=== PATIENT | female | born 1935 | race Caucasian/White ===

== ENCOUNTER 2021-03-08 11:18 | Emergency (ER) | payer SELFPAY ==
[~2021-03-08] VITALS: Ht 165.1 cm; Wt 59.1 kg
[2021-03-08 11:49] VITALS: BP 118/74
== END 2021-03-08 14:52 | disposition left against medical advice (07) ==
LOC: ER 11:18
DX: Z13.89 Encounter for screening for other disorder (principal); R05.9 Cough, unspecified; J02.9 Acute pharyngitis, unspecified; R09.89 Other specified symptoms and signs involving the circulatory and respiratory systems; F17.200 Nicotine dependence, unspecified, uncomplicated; Z85.3 Personal history of malignant neoplasm of breast; Z98.890 Other specified postprocedural states
CPT/HCPCS: 71045; 99283

== ENCOUNTER 2021-03-17 13:02 | Inpatient (IN) | payer BC, MEDICARE ==
[~2021-03-17] VITALS: Ht 165.1 cm; Wt 71.0 kg
[2021-03-17 14:16] LABS: BASOPHILS % (AUTO) 0.8 % (0-1); EOSINOPHILS # (AUTO) 0.1 X10'3 (0-0.9); EOSINOPHILS % (AUTO) 1.3 % (0-6); HEMATOCRIT 40.4 % (35.0-45.0); HEMOGLOBIN 13.9 g/dl (12.0-16.0); LYMPHOCYTES # (AUTO) 0.8 X10'3 (1.1-4.8); LYMPHOCYTES % (AUTO) 17.5 % (21-51); MEAN CORPUSCULAR HEMOGLOBIN 33.4 PG (27.0-31.0); MEAN CORPUSCULAR HGB CONC 34.4 g/dL (33.0-36.5); MEAN CORPUSCULAR VOLUME 97.1 FL (78-98); MEAN PLATELET VOLUME 9.2 FL (7.4-10.4); MONOCYTES # (AUTO) 0.5 X10'3 (0-0.9); MONOCYTES % (AUTO) 10.3 % (2-12); NEUTROPHILS # (AUTO) 3.3 X10'3 (1.8-7.7); NEUTROPHILS % (AUTO) 70.1 % (42-75); PLATELET COUNT 259 X10'3 (140-440); RED BLOOD COUNT 4.15 X10'6 (4.20-5.60); RED CELL DISTRIBUTION WIDTH 12.6 % (11.5-14.5); WHITE BLOOD COUNT 4.7 X10'3 (4.5-11.0)
[2021-03-17 14:22] LABS: ALANINE AMINOTRANSFERASE 10 U/L (12-78); ALBUMIN 2.8 G/DL (3.4-5.0); ALBUMIN/GLOBULIN RATIO 0.9 (1.1-1.5); ALKALINE PHOSPHATASE 56 IU/L (46-116); ANION GAP 7 (8-16); ASPARTATE AMINO TRANSFERASE 22 U/L (10-37); BILIRUBIN,TOTAL 0.6 MG/DL (0.1-1.0); BLOOD UREA NITROGEN 15 MG/DL (7-18); BUN/CREATININE RATIO 20.5 (6.6-38.0); CHLORIDE 109 MMOL/L (99-107); CREATININE 0.73 MG/DL (0.40-0.90); GLUCOSE 86 MG/DL (70-104); LIPASE 156 U/L (73-393); POTASSIUM 3.4 MMOL/L (3.5-5.1); SODIUM 140 MMOL/L (135-145); TOTAL CARBON DIOXIDE 24.1 MMOL/L (24-32); eGFR 76 ML/MIN
--- NOTE | 2021-03-17 17:24 | NUR ---
attepted to discharge pt with son who is primary caregiver and who was in room with pt. son refused to take pt home, stating that he wants a patient reevaluation, to speak to a psych social worker, and wants patient rehabilitated and placed in termite renewal inspector care as he cant take care of her anymore. informed pt and son that termite renewal inspector placement must be done by the patients primary doctor, and that social workers are no longer here for the day. the son stated he wanted to talk to our supervisors, to call in the social workers, and that he will continue to refuse to take her home. [place] attorney [place] present during conversation.
[2021-03-17] MEDS ORDERED: ondansetron/PF 4mg/2ml inj IV PRN (18:05)
[2021-03-17] MEDS ORDERED: potassium CL 10mEq/100ml bag 100 ML IV PRN (18:05)
[2021-03-17] MEDS ORDERED: morphine 2 MG/ML inj. syringe IV PRN (18:05)
[2021-03-17] MEDS ORDERED: magnesium 4gm in 100ml NS 100 ML IV PRN (18:05)
[2021-03-17] MEDS ORDERED: potassium Cl 20 mEq SR tablet PO PRN ×2 (18:05)
[2021-03-17] MEDS ORDERED: HYDROcodone/acetaminophen 5mg/325mg tablet PO PRN (18:05)
[2021-03-17] MEDS ORDERED: magnesium Cl slow-release 64mg tablet PO PRN (18:05)
[2021-03-17] MEDS ORDERED: acetaminophen 325mg tablet PO PRN ×2 (18:05)
[2021-03-17] MEDS ORDERED: magnesium 2GM in 50ml NS 50 ML IV PRN (18:05)
[2021-03-17] MEDS ORDERED: iohexol 350MG/ML 100ml bottle IV ONE (18:45)
--- NOTE | 2021-03-17 18:57 | NUR ---
Patient resting comfortably on gurney, has no complaints. I will continue to monitor.
--- NOTE | 2021-03-17 19:09 | NUR ---
Son at bedside still being difficult, wanting to talk about why we didn't do this or that. Im not going to speak for our doctors and told him that. He is insisting we feed her, says she hasn't eaten in 5 days, I advised him when the admitting doctor gives me orders for a diet we can arrange food. He doesn't understand why we won't feed her enterally, I said it was not indicated. Patient left for CT.
[2021-03-17] MEDS ORDERED: ISOS30TA84 PO (19:17)
[2021-03-17] MEDS ORDERED: EVOL140P3 SUBCUT (19:17)
[2021-03-17] MEDS ORDERED: NITR0.4T51 SL (19:17)
[2021-03-17] MEDS ORDERED: DONE10TA44 PO (19:17)
[2021-03-17] MEDS ORDERED: OMEP-50 PO (19:17)
[2021-03-17 19:44] LABS: CLARITY,URINE SLIGHTLY CLOUDY (Clear); COLOR,URINE YELLOW (Yellow); GLUCOSE, URINE NEGATIVE (Neg); KETONES,URINE 15 mg/dl (Neg); LEUKOCYTE ESTERASE ,URINE SMALL (Neg); NITRITES, URINE NEGATIVE (Neg); OCCULT BLOOD,URINE NEGATIVE (Neg); PROTEIN,URINE NEGATIVE (Neg); UROBILINOGEN,URINE 0.2 E.U/dL (0.2-1.0)
[2021-03-17] MEDS: normal saline 1000ml 1,000 ML IV SCH (19:46)
[2021-03-17 19:47] LABS: UA COLLECTION TYPE NON-SPECIFIED
--- NOTE | 2021-03-17 19:47 | NUR ---
Had patient up to bedside commode with 1 person assist and then changed her into a gown.
[2021-03-17] MEDS: K and/or MAG REPLACEMENT MC SCH (20:00)
[2021-03-17] MEDS ORDERED: dexamethasone 4mg/ml inj IV SCH (20:00)
[2021-03-17 20:08] LABS: BACTERIA,URINE 1+ /HPF (Neg); MUCUS STRANDS FEW /LPF (Neg); RBC,URINE 0-2 /HPF (0-2); SQUAMOUS EPITHELIAL CELL,UR FEW /LPF (FEW); TRANSITIONAL EPI CELLS,URINE FEW /HPF; WBC,URINE 20-30 /HPF (0-4)
[2021-03-17] MEDS: heparin, porcine 5000 units/ml vial SQ SCH (20:53)
[2021-03-17] MEDS ORDERED: temazepam 15mg capsule PO PRN (21:00)
[2021-03-17] MEDS: dexamethasone 6 MG in D5W 100ml IV soln IV SCH (21:27)
[2021-03-18 05:30] VITALS: BP 119/56
--- NOTE | 2021-03-18 06:10 | NUR ---
RECEIVED REPORT FROM RICK, RN
[2021-03-18 07:18] LABS: BASOPHILS % (AUTO) 0.3 % (0-1); EOSINOPHILS % (AUTO) 0 % (0-6); HEMATOCRIT 40.9 % (35.0-45.0); LYMPHOCYTES # (AUTO) 0.4 X10'3 (1.1-4.8); LYMPHOCYTES % (AUTO) 9.7 % (21-51); MEAN CORPUSCULAR HEMOGLOBIN 32.4 PG (27.0-31.0); MEAN CORPUSCULAR HGB CONC 34.3 g/dL (33.0-36.5); MEAN CORPUSCULAR VOLUME 94.5 FL (78-98); MEAN PLATELET VOLUME 9.4 FL (7.4-10.4); MONOCYTES # (AUTO) 0.1 X10'3 (0-0.9); MONOCYTES % (AUTO) 2.2 % (2-12); NEUTROPHILS # (AUTO) 3.4 X10'3 (1.8-7.7); NEUTROPHILS % (AUTO) 87.8 % (42-75); PLATELET COUNT 307 X10'3 (140-440); RED BLOOD COUNT 4.33 X10'6 (4.20-5.60); RED CELL DISTRIBUTION WIDTH 12.6 % (11.5-14.5); WHITE BLOOD COUNT 3.9 X10'3 (4.5-11.0)
[2021-03-18] MEDS: pantoprazole 40mg Tablet.DR PO SCH (07:30)
[2021-03-18 07:57] LABS: ALANINE AMINOTRANSFERASE 11 U/L (12-78); ALBUMIN 2.8 G/DL (3.4-5.0); ALBUMIN/GLOBULIN RATIO 0.9 (1.1-1.5); ALKALINE PHOSPHATASE 58 IU/L (46-116); ANION GAP 10 (8-16); ASPARTATE AMINO TRANSFERASE 18 U/L (10-37); BILIRUBIN,TOTAL 0.5 MG/DL (0.1-1.0); BLOOD UREA NITROGEN 11 MG/DL (7-18); CALCIUM 8.1 MG/DL (8.5-10.1); CHLORIDE 111 MMOL/L (99-107); CREATININE 0.55 MG/DL (0.40-0.90); GLUCOSE 121 MG/DL (70-104); POTASSIUM 3.8 MMOL/L (3.5-5.1); SODIUM 144 MMOL/L (135-145); TOTAL CARBON DIOXIDE 22.8 MMOL/L (24-32); eGFR > 90 ML/MIN
[2021-03-18] MEDS: K and/or MAG REPLACEMENT MC SCH ×2 (08:00→20:00)
[2021-03-18] MEDS: donepezil 5mg tablet PO SCH (08:00)
[2021-03-18] MEDS: CefTRIAXone 2gm/D5W 50ml BAG 50 ML IV SCH (08:55)
[2021-03-18] MEDS: heparin, porcine 5000 units/ml vial SQ SCH ×2 (08:59→20:30)
[2021-03-18] MEDS: isosorbide mononitrate 30mg tab.SR.24H PO SCH (09:02)
--- NOTE | 2021-03-18 09:11 | NUR ---
scanner not scanning meds into [employer], checked all meds prior to admin, continue to monitor pt
[2021-03-18] MEDS: dexamethasone 6 MG in D5W 100ml IV soln IV SCH ×2 (09:40→20:30)
[2021-03-18 10:00] VITALS: BP 118/80
--- NOTE | 2021-03-18 15:33 | NUR ---
Malnutrition Consult: Pt admit DX COVID-19 asymptomatic and generalized weakness w/ hx dementia per EMR. Pt unsure of wt loss hx though reports decrease appetite [employer] per RN Malnutrition Screen. Pt has mild weakness, no edema, skin intact, no scaled wt this admit or prior scaled wt hx, and currently on room air per EMR. Pt refused first regular diet meal this AM w/ 25% lunch today and is independent w/ feeding per EMR. Pt lacks minimum malnutrition criteria at this time; will monitor for further malnutrition criteria and nutrition intervention needs this admit. Addendum: 03/18/21 at [address] Amended: Links added.
[2021-03-18] MEDS: normal saline 1000ml 1,000 ML IV SCH (17:21)
[2021-03-18 18:00] VITALS: BP 138/108
--- NOTE | 2021-03-18 18:46 | NUR ---
gave report to becca davila
[2021-03-18 22:00] VITALS: BP 98/47
[2021-03-19 02:00] VITALS: BP 104/47
[2021-03-19 06:00] VITALS: BP 103/45
--- NOTE | 2021-03-19 07:10 | NUR ---
Problems reprioritized. Patient report given, questions answered & plan of care reviewed with Savannah FUENTES.
[2021-03-19 07:35] LABS: BASOPHILS % (AUTO) 0.5 % (0-1); EOSINOPHILS % (AUTO) 0.3 % (0-6); HEMATOCRIT 38.5 % (35.0-45.0); HEMOGLOBIN 13.3 g/dl (12.0-16.0); LYMPHOCYTES # (AUTO) 0.6 X10'3 (1.1-4.8); LYMPHOCYTES % (AUTO) 9.5 % (21-51); MEAN CORPUSCULAR HGB CONC 34.6 g/dL (33.0-36.5); MEAN CORPUSCULAR VOLUME 95.2 FL (78-98); MEAN PLATELET VOLUME 9.4 FL (7.4-10.4); MONOCYTES # (AUTO) 0.3 X10'3 (0-0.9); MONOCYTES % (AUTO) 4.5 % (2-12); NEUTROPHILS # (AUTO) 5.2 X10'3 (1.8-7.7); NEUTROPHILS % (AUTO) 85.2 % (42-75); PLATELET COUNT 327 X10'3 (140-440); RED BLOOD COUNT 4.04 X10'6 (4.20-5.60); RED CELL DISTRIBUTION WIDTH 12.7 % (11.5-14.5); WHITE BLOOD COUNT 6.1 X10'3 (4.5-11.0)
[2021-03-19] MEDS: K and/or MAG REPLACEMENT MC SCH ×2 (08:00→19:27)
[2021-03-19 08:28] LABS: ALANINE AMINOTRANSFERASE 10 U/L (12-78); ALBUMIN 2.7 G/DL (3.4-5.0); ALKALINE PHOSPHATASE 54 IU/L (46-116); ANION GAP 11 (8-16); ASPARTATE AMINO TRANSFERASE 15 U/L (10-37); BILIRUBIN,TOTAL 0.4 MG/DL (0.1-1.0); BLOOD UREA NITROGEN 14 MG/DL (7-18); BUN/CREATININE RATIO 26.9 (6.6-38.0); CALCIUM 7.9 MG/DL (8.5-10.1); CHLORIDE 112 MMOL/L (99-107); CREATININE 0.52 MG/DL (0.40-0.90); GLUCOSE 129 MG/DL (70-104); POTASSIUM 3.8 MMOL/L (3.5-5.1); SODIUM 144 MMOL/L (135-145); TOTAL CARBON DIOXIDE 21.5 MMOL/L (24-32); TOTAL PROTEIN 5.3 G/DL (6.4-8.2); eGFR > 90 ML/MIN
[2021-03-19] MEDS: heparin, porcine 5000 units/ml vial SQ SCH ×2 (09:12→19:33)
[2021-03-19] MEDS: dexamethasone 6 MG in D5W 100ml IV soln IV SCH ×2 (09:12→19:33)
[2021-03-19] MEDS: CefTRIAXone 2gm/D5W 50ml BAG 50 ML IV SCH (09:12)
[2021-03-19] MEDS: isosorbide mononitrate 30mg tab.SR.24H PO SCH (09:12)
[2021-03-19] MEDS: pantoprazole 40mg Tablet.DR PO SCH (09:12)
[2021-03-19] MEDS: donepezil 5mg tablet PO SCH (09:12)
[2021-03-19 10:00] VITALS: BP 112/46
[2021-03-19] MEDS: normal saline 1000ml 1,000 ML IV SCH (10:05)
[2021-03-19] MEDS ORDERED: DEC4T PO (13:55)
--- NOTE | 2021-03-19 16:31 | NUR ---
Page Sent PAGER ID: [phone] MESSAGE: DANIELLE [id number]-RE: MARICHUY MEDEIROS [id number]...PTS SON CALLED BACK, MISSED YOUR CALL, NOW HAS PHONE IN HAND, PLEASE CALL BACK [phone]
[2021-03-19 18:00] VITALS: BP 110/50
--- NOTE | 2021-03-19 18:32 | NUR ---
POC discussed with transmitter engineer in charge- Son Pepe uncomfortable taking patient home at this time without speaking to MD first. MD notified. Plan with transmitter engineer in charge for patient to stay overnight and to be discharged next am after son is able to to have questions answered from MD and feels that discharge is safe.
--- NOTE | 2021-03-19 18:35 | NUR ---
Patient in room [facility] 4007. I have received report from Savannah FUENTES and had the opportunity to ask questions and assume patient care.
[2021-03-19] MEDS: lactobacillus rhamnosus 10,000 MMU CELLS/CAPSULE PO SCH (19:32)
[2021-03-19 22:00] VITALS: BP 112/49
[2021-03-20] MEDS: normal saline 1000ml 1,000 ML IV SCH (03:20)
--- NOTE | 2021-03-20 06:33 | NUR ---
Problems reprioritized. Patient report given, questions answered & plan of care reviewed with Savannah FUENTES.
--- NOTE | 2021-03-20 07:00 | NUR ---
Piyush Villalobos, son requesting to speak with MD to facilitate safe discharge plan.
[2021-03-20 07:23] LABS: BASOPHILS % (AUTO) 0.5 % (0-1); EOSINOPHILS % (AUTO) 0 % (0-6); HEMATOCRIT 36.1 % (35.0-45.0); HEMOGLOBIN 12.7 g/dl (12.0-16.0); LYMPHOCYTES # (AUTO) 0.5 X10'3 (1.1-4.8); LYMPHOCYTES % (AUTO) 8.4 % (21-51); MEAN CORPUSCULAR HEMOGLOBIN 34.2 PG (27.0-31.0); MEAN CORPUSCULAR HGB CONC 35.2 g/dL (33.0-36.5); MEAN PLATELET VOLUME 9.5 FL (7.4-10.4); MONOCYTES # (AUTO) 0.3 X10'3 (0-0.9); MONOCYTES % (AUTO) 4.4 % (2-12); NEUTROPHILS # (AUTO) 5.5 X10'3 (1.8-7.7); NEUTROPHILS % (AUTO) 86.7 % (42-75); PLATELET COUNT 319 X10'3 (140-440); RED BLOOD COUNT 3.72 X10'6 (4.20-5.60); RED CELL DISTRIBUTION WIDTH 12.8 % (11.5-14.5); WHITE BLOOD COUNT 6.3 X10'3 (4.5-11.0)
[2021-03-20 07:59] LABS: ALANINE AMINOTRANSFERASE 13 U/L (12-78); ALBUMIN 2.5 G/DL (3.4-5.0); ALKALINE PHOSPHATASE 48 IU/L (46-116); ANION GAP 8 (8-16); ASPARTATE AMINO TRANSFERASE 16 U/L (10-37); BILIRUBIN,TOTAL 0.3 MG/DL (0.1-1.0); BLOOD UREA NITROGEN 15 MG/DL (7-18); CALCIUM 7.6 MG/DL (8.5-10.1); CHLORIDE 115 MMOL/L (99-107); GLUCOSE 107 MG/DL (70-104); POTASSIUM 3.9 MMOL/L (3.5-5.1); SODIUM 144 MMOL/L (135-145); TOTAL CARBON DIOXIDE 21.3 MMOL/L (24-32); eGFR > 90 ML/MIN
[2021-03-20] MEDS: K and/or MAG REPLACEMENT MC SCH (08:00)
[2021-03-20] MEDS: CefTRIAXone 2gm/D5W 50ml BAG 50 ML IV SCH (08:16)
[2021-03-20] MEDS: donepezil 5mg tablet PO SCH (08:17)
[2021-03-20] MEDS: isosorbide mononitrate 30mg tab.SR.24H PO SCH (08:17)
[2021-03-20] MEDS: heparin, porcine 5000 units/ml vial SQ SCH (08:17)
[2021-03-20] MEDS: dexamethasone 6 MG in D5W 100ml IV soln IV SCH (08:17)
[2021-03-20] MEDS: lactobacillus rhamnosus 10,000 MMU CELLS/CAPSULE PO SCH (08:17)
[2021-03-20] MEDS: pantoprazole 40mg Tablet.DR PO SCH (08:23)
--- NOTE | 2021-03-20 09:05 | NUR ---
Pagelilia Villalobos regarding plan for discharge, Son Pepe requesting to speak with .
[2021-03-20 10:00] VITALS: BP 121/54
--- NOTE | 2021-03-20 11:47 | NUR ---
Piyush PHILLIPS Wilfredo to let her know son is at bedside and is requesting to talk to her prior to discharge.
--- NOTE | 2021-03-20 12:12 | NUR ---
Patient discharged home with Son Pepe at this time. Patient in stable condition. Discharge instructions reviewed with patient and Son. MD Villalobos at bedside to answer any additional questions. Walker sent home with patient. Medications reviewed.
[2021-03-25] MEDS ORDERED: EVOLOCUMAB 140 MG SQ SCH (10:00)
== END 2021-03-20 12:15 | disposition home health service (06) | DRG 179 ==
LOC: ER 13:02 → UNDOADMIN 18:12 → ED HOLD 18:12 → ORTHO 4S 03-18 05:12 → ED HOLD 03-18 07:43
PROVIDERS: ADMIT Internal Medicine; ATTEND Internal Medicine
DX: U07.1 COVID-19 (principal); I25.10 Atherosclerotic heart disease of native coronary artery without angina pectoris; R62.7 Adult failure to thrive; F03.90 Unspecified dementia, unspecified severity, without behavioral disturbance, psychotic disturbance, mood disturbance, and anxiety; R00.1 Bradycardia, unspecified; K21.9 Gastro-esophageal reflux disease without esophagitis; Z87.891 Personal history of nicotine dependence; Z85.3 Personal history of malignant neoplasm of breast; Z95.1 Presence of aortocoronary bypass graft; Z88.8 Allergy status to other drugs, medicaments and biological substances; Z68.26 Body mass index [BMI] 26.0-26.9, adult; Z79.899 Other long term (current) drug therapy
CPT/HCPCS: 36415; 71260; 80053; 81001; 83605; 83690; 85025; 85610; 87040; 87081; 87088; 93005; 97116; 97161; 97530; 99285; G0378; J0696; J1100; J1644; J7030; J7060; Q9967